=== PATIENT | male | born 1990 | race African-American/Black ===

== ENCOUNTER 2016-11-14 19:42 | Emergency (ER) | payer SELFPAY ==
--- NOTE | 2016-11-14 21:00 | ER Document Report ---
ED GI/ - General Chief Complaint: Pain With Urination Stated Complaint: ABDOMINAL PAIN Time Seen by Provider: 11/14/16 20:48 Notes: Patient is a 25-year-old male who comes emergency department for chief complaint of intermittent burning with urination, discharge from the penis, and intermittent lower abdominal cramps. He denies abdominal pain at this time. He denies testicular pain. He denies injury. He states she is sexually active with his girlfriend, states he does have unprotected intercourse. However he states he was recently tested and he thinks he is clean. Patient denies any daily medications or other medical history. TRAVEL OUTSIDE OF THE [place] IN LAST 30 DAYS: No - Related Data Allergies/Adverse Reactions: No Known Allergies Allergy (Verified 02/02/16 09:56) Past Medical History - General Information source: Patient - Social History Smoking Status: Never Smoker Drug Abuse: None Lives with: Spouse/Significant other Family History: CVA, Hypertension Patient has suicidal ideation: No Patient has homicidal ideation: No Pulmonary Medical History: Reports: Hx Asthma Renal/ Medical History: Denies: Hx Peritoneal Dialysis - Immunizations Immunizations up to date: Yes Hx Diphtheria, Pertussis, Tetanus Vaccination: Yes Review of Systems - Review of Systems Constitutional: No symptoms reported EENT: No symptoms reported Cardiovascular: No symptoms reported Respiratory: No symptoms reported Gastrointestinal: See HPI Genitourinary: See HPI Male Genitourinary: No symptoms reported Musculoskeletal: No symptoms reported Skin: No symptoms reported Hematologic/Lymphatic: No symptoms reported Neurological/Psychological: No symptoms reported Physical Exam - Vital signs Vitals: Temp Pulse Resp BP Pulse Ox 98.8 F 78 16 130/64 H 98 11/14/16 19:47 11/14/16 19:47 11/14/16 19:47 11/14/16 19:47 11/14/16 19:47 Interpretation: Normal - General General appearance: Appears well, Alert - HEENT Head: Normocephalic, Atraumatic Eyes: Normal Pupils: PERRL Pharynx: Normal - Respiratory Respiratory status: No respiratory distress Chest status: Nontender Breath sounds: Normal Chest palpation: Normal - Cardiovascular Rhythm: Regular Heart sounds: Normal auscultation Murmur: No - Abdominal Inspection: Normal Distension: No distension Bowel sounds: Normal Tenderness: Nontender. No: Tender Organomegaly: No organomegaly - Genitourinary Inspection: Normal. No: Blood at meatus, Penile discharge Tenderness: Nontender Cremasteric reflex: Normal Scrotum: Normal - Back Back: Normal, Nontender - Extremities General upper extremity: Normal inspection, Nontender, Normal color, Normal ROM , Normal temperature General lower extremity: Normal inspection, Nontender, Normal color, Normal ROM , Normal temperature, Normal weight bearing. No: Jeane's sign - Neurological Neuro grossly intact: Yes Cognition: Normal Orientation: AAOx4 Digna Coma Scale Eye Opening: Spontaneous [place] Coma Scale Verbal: Oriented Digna Coma Scale Motor: Obeys Commands Digna Coma Scale Total: 15 Speech: Normal Motor strength normal: LUE, RUE, LLE, RLE Sensory: Normal - Psychological Associated symptoms: Normal affect, Normal mood - Skin Skin Temperature: Warm Skin Moisture: Dry Skin Color: Normal Course - Re-evaluation Re-evalutation: Genital exam is unremarkable, abdominal exam is unremarkable, however based on patient's symptoms patient will be tested for gonorrhea and chlamydia. He states he wants to wait for the results. Gonorrhea and Chlamydia are both positive. Patient treated with Rocephin, azithromycin, he states his partner will be treated. Discussed follow-up, discussed return precautions, patient states understanding and agreement - Vital Signs Vital signs: Temp Pulse Resp BP Pulse Ox 98.4 F 79 18 144/79 H 99 11/14/16 23:58 11/14/16 23:58 11/14/16 23:58 11/14/16 23:58 11/14/16 23:58 - Laboratory Laboratory results interpreted by me: 11/14/16 20:44 Chlamydia DNA (PCR) DETECTED H N.gonorrhoeae DNA (PCR) DETECTED H Discharge - Discharge Clinical Impression: Dysuria, Penile discharge Condition: Stable Disposition: HOME, SELF-CARE Additional Instructions: Testing is positive for both gonorrhea and chlamydia. You have been treated for both. Your partner needs to also be treated. Avoid intercourse until 1 week after you both have been treated. Follow-up with primary care. Return to emergency department for any concerning symptoms.
[2016-11-14 22:41] LABS: CHLAM PCR DETECTED (NOT DETECT)
[2016-11-14] MEDS ORDERED: CEFTRIAXONE INJ 250 MG VIAL IM ONE (23:04)
[2016-11-14] MEDS ORDERED: LIDOCAINE 1% INJ-PF (10 MG/ML) 30 ML SDV INJ ONE (23:04)
[2016-11-14] MEDS ORDERED: AZITHROMYCIN 250 MG TABLET PO ONE (23:05)
[2016-11-14 23:59] VITALS: BP 144/79
== END 2016-11-14 23:55 | disposition home or self-care (01) ==
LOC: ER 19:42
DX: R36.9 Urethral discharge, unspecified (principal); R30.0 Dysuria; R10.9 Unspecified abdominal pain
CPT/HCPCS: 99283; 96372; 87491; 87591; J3490; J0696

== ENCOUNTER 2017-11-04 04:14 | Emergency (ER) | payer SELFPAY ==
[2017-11-04] MEDS ORDERED: ONDANSETRON HCL INJ/PF 4 MG/2 ML SDV IV ONE (05:32)
[2017-11-04] MEDS ORDERED: NORMAL SALINE 1000 ML 1,000 ML IV PRN (05:32)
[2017-11-04] MEDS ORDERED: MORPHINE SULFATE 10 MG/ML INJ IV ONE (05:32)
[2017-11-04] MEDS ORDERED: KETOROLAC TROMETHAMINE INJ/PF 30 MG/1 ML SDV IV ONE (05:32)
--- NOTE | 2017-11-04 05:35 | ER Document Report ---
ED General - General Chief Complaint: Abdominal Pain Stated Complaint: ABDOMINAL PAIN Time Seen by Provider: 11/04/17 05:28 TRAVEL OUTSIDE OF THE [place] IN LAST 30 DAYS: No - HPI Notes: Patient is a 26-year-old male with no significant past medical history who presents to the ED complaining of right flank pain that radiates around into his groin, hematuria, dysuria, and nausea without vomiting 2-1/2 hours. Patient states that his pain started pretty suddenly. Patient states that he has otherwise been feeling well prior and has been eating and drinking without difficulties. He is having normal bowel movements as well earlier. He denies any drug allergies. He has not had any kidney stones in the past. No other concerns or complaints at this time. Nothing improves or worsens his pain. Denies any headache, fever, neck pain, URI, sore throat, chest pain, palpitations, syncope, cough, shortness of breath, wheeze, dyspnea, vomiting/ diarrhea, loss of control of bowel or bladder, numbness/tingling, saddle anesthesia, muscle paralysis/weakness, or rash. - Related Data Allergies/Adverse Reactions: No Known Allergies Allergy (Verified 02/02/16 09:56) Past Medical History - Social History Smoking Status: Unknown if Ever Smoked Family History: CVA, Hypertension Pulmonary Medical History: Reports: Hx Asthma Renal/ Medical History: Denies: Hx Peritoneal Dialysis - Immunizations Immunizations up to date: Yes Hx Diphtheria, Pertussis, Tetanus Vaccination: Yes Review of Systems - Review of Systems -: Yes All other systems reviewed and negative Physical Exam - Vital signs Vitals: Temp Pulse Resp BP Pulse Ox 98.5 F 86 18 144/87 H 100 11/04/17 04:20 11/04/17 04:20 11/04/17 04:20 11/04/17 04:20 11/04/17 04:20 - Notes Notes: PHYSICAL EXAMINATION: GENERAL: Well-appearing, well-nourished and in no acute distress, but look uncomfortable EYES: Pupils equal round and reactive to light, extraocular movements intact, sclera anicteric, conjunctiva are normal. LUNGS: Breath sounds clear to auscultation bilaterally and equal. No wheezes rales or rhonchi. HEART: Regular rate and rhythm without murmurs, rubs, gallops. ABDOMEN: Soft, nondistended abdomen. No guarding, no rebound. No masses appreciated. Normal bowel sounds present. No CVA tenderness bilaterally. + mild tenderness to the suprapubic area. No tenderness at McBurney. Pablo neg. Musculoskeletal: FROM to passive/active. Strength 5+/5. Extremities: No cyanosis, clubbing, or edema b/l. Peripheral pulses 2+. Capillary refill less than 3 seconds. NEUROLOGICAL: Normal speech, normal gait. PSYCH: Normal mood, normal affect. SKIN: Warm, Dry, normal turgor, no rashes or lesions noted. Course - Re-evaluation Re-evalutation: 11/04/17 06:46 Patient is an afebrile, well-hydrated, 26-year-old male who presents to the ED with hematuria and right flank pain, suspect recently passed stone. Vitals are acceptable. PE is otherwise unremarkable. Patient states that he did not have any hematuria until his initial urine that he provided to us. The pain has not worsened. CBC, CMP were unremarkable for any acute pathology. See urinalysis. CT scan was unremarkable for any acute pathology otherwise. Patient is tolerating p.o. without difficulties. He has no significant tachycardia, tachypnea, or hypoxia. His abdomen is otherwise soft and nontender at this time. Low suspicion/risk for acute appendicitis, bowel obstruction, acute cholecystitis, perforated diverticulitis, incarcerated hernia, pancreatitis, perforated ulcer, peritonitis, sepsis, or other systemic emergent condition at this time. Patient is aware that his condition can change from initial presentation and he needs to monitor symptoms closely and seek medical attention if any acute changes. Conservative measures otherwise for symptoms. Recheck with PCM in 2-3 days. Consider consult with a neurologist this week. Reviewed with patient that he will need his urine rechecked in a couple days due to the hematuria as worst case scenario could be cancer. return to the ED with any worsening/concerning symptoms otherwise as reviewed in discharge. Patient is in agreement. Reviewed with Dr. Mendez who is in agreement with dispo/plan. - Vital Signs Vital signs: Temp Pulse Resp BP Pulse Ox 98.5 F 86 18 144/87 H 100 11/04/17 04:20 11/04/17 04:20 11/04/17 04:20 11/04/17 04:20 11/04/17 04:20 - Laboratory Result Diagrams: 11/04/17 06:08 11/04/17 06:08 Laboratory results interpreted by me: 11/04/17 11/04/17 04:22 06:08 WBC 10.7 H Urine Protein >=500 H Urine Blood SMALL H Urine Urobilinogen 2.0 H Discharge - Discharge Clinical Impression: Dysuria, Right flank pain Hematuria Qualifiers: Hematuria type: unspecified type Qualified Code(s): R31.9 - Hematuria, unspecified Condition: Stable Disposition: HOME, SELF-CARE Instructions: Abdominal Pain ([facility]), Antinausea Medication ([facility]) Additional Instructions: He did have blood in the urine and he will need this rechecked and 2-3 days to further evaluate as in rare instances hematuria/blood in the urine can be a secondary result from cancer. Push fluids (i.e. water, cranberry juice) Proper hygenic technique Keep the skin clean Tylenol/ibuprofen as needed May use over the counter AZO for burning with urination x2-3 days Take medications as directed F/u with your PCM in 2-3 days for a recheck Schedule a consult with a Urologist this week. Return to the ED with any worsening symptoms and/or development of fever, headache, chest pain, palpitations, syncope, shortness of breath, trouble breathing, abdominal pain, n/v/d, blood in stool/urine, loss of control of bowel /bladder, urinary retention, or other worsening symptoms that are concerning to you. Prescriptions: Hydrocodone/Acetaminophen [[place] 5-325 mg Tablet] 1 tab PO BID PRN #6 tablet PRN Reason: Ondansetron [Zofran Odt 4 mg Tablet] 1 - 2 tab PO Q4H PRN #15 tab.rapdis PRN Reason: For Nausea/Vomiting Tamsulosin HCl [Flomax] 0.4 mg PO DAILY #10 cap.er.24h Forms: Elevated Blood Pressure Referrals: KEEGAN SOLO II, MD [COMIC ARTIST] - 11/06/17
[2017-11-04 06:08] LABS: BILIRUBIN,URINE NEGATIVE (NEGATIVE); GLUCOSE, URINE NEGATIVE (NEGATIVE); KETONES,URINE NEGATIVE (NEGATIVE); LEUKOCYTE ESTERASE,URINE NEGATIVE (NEGATIVE); NITRITE,URINE NEGATIVE (NEGATIVE); PROTEIN,URINE >=500 mg/dL (NEGATIVE); URINE SPECIFIC GRAVITY 1.023
[2017-11-04 06:09] LABS: COLOR,URINE RED
[2017-11-04 06:10] LABS: APPEARANCE,URINE TURBID
[2017-11-04 06:21] LABS: ABSOLUTE BASOPHILS # (AUTO) 0.1 10^3/uL (0.0-0.2); ABSOLUTE EOSINOPHILS # (AUTO) 0.5 10^3/uL (0.0-0.6); ABSOLUTE LYMPHOCYTES (AUTO) 2.5 10^3/uL (0.5-4.7); ABSOLUTE MONOCYTES (AUTO) 0.7 10^3/uL (0.1-1.4); ABSOLUTE NEUT (AUTO) 6.9 10^3/uL (1.7-8.2); BASOPHILS % (AUTO) 0.5 % (0-2); EOSINOPHILS % (AUTO) 4.3 % (0-6); HEMOGLOBIN 14.7 g/dL (13.5-17.0); LYMPHOCYTES % (AUTO) 23.3 % (13-45); MEAN CORPUSCULAR HEMOGLOBIN 30.6 pg (27.0-33.4); MEAN CORPUSCULAR HGB CONC 34.1 g/dL (32.0-36.0); MEAN CORPUSCULAR VOLUME 90 fl (80-97); MONOCYTES % (AUTO) 6.9 % (3-13); PLATELET COUNT 204 10^3/uL (150-450); RED BLOOD COUNT 4.78 10^6/uL (4.35-5.55); RED CELL DISTRIBUTION WIDTH 13.6 % (11.5-14.0); TOTAL CELLS COUNTED % (AUTO) 100 %; WHITE BLOOD COUNT 10.7 10^3/uL (4.0-10.5)
--- NOTE | 2017-11-04 06:36 | RADIOLOGY REPORT (SQ) ---
EXAM DESCRIPTION: CT ABDOMEN AND PELVIS WITHOUT CONTRAST CLINICAL HISTORY: Rt flank pain, hematuria COMPARISON: 02/01/2026 TECHNIQUE: CT of the abdomen and pelvis without IV contrast. Evaluation of the solid organs and vasculature is suboptimal due to lack of IV contrast. DLP: 150.50 mGy-cm FINDINGS: Lung Bases: The visualized lung bases are clear. Bones: No destructive bone lesions identified. Abdomen: Liver: The liver has normal size and density. Gallbladder: No calcified gallstones. Spleen, Pancreas, and Adrenal Glands: The spleen, pancreas, and adrenal glands are unremarkable. Kidneys: The kidneys have normal size and contour without evidence of hydronephrosis. No obstructing ureteral calculi. Vasculature: The aorta and IVC have normal caliber and position. Stomach: The stomach and duodenum have normal course. Other: No free intraperitoneal air. No free fluid or lymphadenopathy. Pelvis: Bladder: Urinary bladder is unremarkable. Bowel: No dilated loops of large or small bowel. Appendix: Normal appendix. Pelvis: Prostate is not enlarged. IMPRESSION: 1. No acute inflammatory or obstructive process identified. This exam was performed according to our departmental dose-optimization program, which includes automated exposure control, adjustment of the mA and/or kV according to patient size and/or use of iterative reconstruction technique.
[2017-11-04 06:37] LABS: ALANINE AMINOTRANSFERASE 24 U/L (21-72); ALBUMIN 4.1 g/dL (3.5-5.0); ALKALINE PHOSPHATASE 76 U/L (38-126); ANION GAP 8 (5-19); ASPARTATE AMINO TRANSFERASE 25 U/L (17-59); BILIRUBIN,DIRECT 0.3 mg/dL (0.0-0.4); BILIRUBIN,TOTAL 0.3 mg/dL (0.2-1.3); BLOOD UREA NITROGEN 11 mg/dL (7-20); CALCIUM 9.6 mg/dL (8.4-10.2); CARBON DIOXIDE 27 mmol/L (22-30); CHLORIDE 107 mmol/L (98-107); GLUCOSE 98 mg/dL (75-110); POTASSIUM 3.7 mmol/L (3.6-5.0); SODIUM 142.1 mmol/L (137-145)
[2017-11-04 07:49] VITALS: BP 130/70
== END 2017-11-04 07:49 | disposition home or self-care (01) ==
LOC: ER 04:14
DX: R31.9 Hematuria, unspecified (principal); R10.9 Unspecified abdominal pain; R10.30 Lower abdominal pain, unspecified; R30.0 Dysuria; R11.0 Nausea; J45.909 Unspecified asthma, uncomplicated
CPT/HCPCS: 99284; 96361; 96374; 96375; 36415; 87086; 85025; 87088; 80053; 81001; 87186; 76380; J1885; J2270; J2405; J7030

== ENCOUNTER 2017-11-07 07:07 | Emergency (ER) | payer SELFPAY ==
[2017-11-07 07:14] VITALS: BP 123/70
[2017-11-07] MEDS ORDERED: CIPROFLOXACIN HCL 500 MG TABLET PO ONE (07:45)
[2017-11-07] MEDS ORDERED: CEFTRIAXONE INJ 1000 MG VIAL IM ONE (07:45)
--- NOTE | 2017-11-07 07:46 | ER Document Report ---
ED GI/ - General Chief Complaint: Flank Pain Stated Complaint: SIDE PAIN/BLOOD IN URINE Time Seen by Provider: 11/07/17 07:41 Notes: Urine culture from November 04 shows greater than 100,000 colonies of E. coli so I will treat with an injection of ceftriaxone which is sensitive and a prescription for ciprofloxacin 500 mg twice daily. TRAVEL OUTSIDE OF THE [place] IN LAST 30 DAYS: No - Related Data Allergies/Adverse Reactions: No Known Allergies Allergy (Verified 11/07/17 07:11) Past Medical History - Social History Family History: CVA, Hypertension Pulmonary Medical History: Reports: Hx Asthma Renal/ Medical History: Denies: Hx Peritoneal Dialysis - Immunizations Immunizations up to date: Yes Hx Diphtheria, Pertussis, Tetanus Vaccination: Yes Physical Exam - Vital signs Vitals: Temp Pulse Resp BP Pulse Ox 98.6 F 74 12 123/70 99 11/07/17 07:12 11/07/17 07:12 11/07/17 07:12 11/07/17 07:12 11/07/17 07:12 Course - Vital Signs Vital signs: Temp Pulse Resp BP Pulse Ox 98.6 F 74 12 123/70 99 11/07/17 07:12 11/07/17 07:12 11/07/17 07:12 11/07/17 07:12 11/07/17 07:12
--- NOTE | 2017-11-07 08:04 | ER Document Report ---
HPI - HPI Pain Level: 2 Context: 26-year-old male continues with right flank pain and a little bit hematuria. Has been taking hydrocodone and Flomax suspecting that it was a kidney stone when he was seen on November 04. The urine culture grew greater than 100,000 colonies E. coli. It is sensitive to ceftriaxone and Cipro. He has a male sexual partner and his E that the receptive or the rectal rn discharge without condom use. I discussed with him when he inserts into the rectum even though they use a enema the rectal bacteria can get into his urethra and cause a urinary tract infection. He had a mild fever last night but no vomiting. No testicular pain or swelling. He was not screened for gonorrhea or chlamydia on the fourth and he was positive for both in 2017 so I have asked him to please submit a sample for that today and he agrees with that. Associated Symptoms: None Exacerbated by: Other - urination Relieved by: Denies Similar symptoms previously: No Recently seen / treated by doctor: Yes - ROS ROS below otherwise negative: Yes Systems Reviewed and Negative: Yes All other systems reviewed and negative - REPRODUCTIVE Reproductive: DENIES: : Past Medical History - General Information source: Patient - Social History Smoking Status: Unknown if Ever Smoked Frequency of alcohol use: None Drug Abuse: None Lives with: Spouse/Significant other Family History: CVA, Hypertension Pulmonary Medical History: Reports: Hx Asthma Renal/ Medical History: Reports: Other - hx gonorrhea 2017. Denies: Hx Peritoneal Dialysis Surgical Hx: Negative - Immunizations Immunizations up to date: Yes Hx Diphtheria, Pertussis, Tetanus Vaccination: Yes Vertical Provider Document - INFECTION CONTROL TRAVEL OUTSIDE OF THE [place] IN LAST 30 DAYS: No Course - Re-evaluation Re-evalutation: 11/07/17 14:13 Patient call back as gonorrhea and Chlamydia were negative. - Vital Signs Vital signs: Temp Pulse Resp BP Pulse Ox 98.6 F 74 12 123/70 99 11/07/17 07:12 11/07/17 07:12 11/07/17 07:12 11/07/17 07:12 11/07/17 07:12 Discharge - Discharge Clinical Impression: E. coli urinary tract infection Condition: Good Disposition: HOME, SELF-CARE Instructions: Ciprofloxacin ([facility]), Rocephin ([facility]), Urinary Tract Infection ([facility] ) Additional Instructions: Call me in 3 hours for the STD culture results at [phone] Did not have intercourse until you find out about the STD culture results. If they are positive your partner will need to be treated Return to the emergency room for any vomiting fever increased pain or genitalia swelling. Use condoms to protect her urinary tract when you do have intercourse. Prescriptions: Ciprofloxacin HCl [Cipro 500 mg Tablet] 500 mg PO BID #14 tablet Forms: Return to Work
[2017-11-07] MEDS ORDERED: LIDOCAINE 1% INJ-PF (10 MG/ML) 30 ML SDV INJ ONE (08:09)
[2017-11-07 10:10] LABS: CHLAM PCR NOT DETECTED (NOT DETECT); GON PCR NOT DETECTED (NOT DETECT)
== END 2017-11-07 08:28 | disposition home or self-care (01) ==
LOC: ER 07:07
DX: N39.0 Urinary tract infection, site not specified (principal); B96.20 Unspecified Escherichia coli [E. coli] as the cause of diseases classified elsewhere; R31.9 Hematuria, unspecified; R10.9 Unspecified abdominal pain; R50.9 Fever, unspecified; Z79.899 Other long term (current) drug therapy; J45.909 Unspecified asthma, uncomplicated
CPT/HCPCS: 99284; 96372; 87491; 87591; J3490; J0696

== ENCOUNTER 2017-11-26 14:54 | Emergency (ER) | payer SELFPAY ==
[2017-11-26] MEDS ORDERED: ACETAMINOPHEN 325 MG TABLET PO ONE (16:07)
[2017-11-26] MEDS ORDERED: ONDANSETRON 4 MG TAB.RAPDIS PO ONE (16:07)
--- NOTE | 2017-11-26 16:09 | ER Document Report ---
ED Medical Screen (RME) - General Chief Complaint: Abdominal Pain Stated Complaint: STOMACH PAIN Time Seen by Provider: 11/26/17 15:59 Notes: RAPID MEDICAL EVALUATION DISCLOSURE I have seen this patient as part of a Rapid Medical Evaluation and, if applicable, placed any initially appropriate orders. The patient will be seen and fully evaluated, including a full history and physical exam, by a provider ( in Main ED or Fast Track) when a room becomes available. 26-year-old male here with complaints of lower abdominal pain nausea vomiting and dysuria that started 2 days ago. The pain is not worse with movement or walking. He has had fevers up to 102 as well. He reports this feels like the previous episode he had during his recent ED visits and reports that it turned out to be a UTI. EXAM Minimal right lower quadrant TTP Mild to moderate suprapubic TTP TRAVEL OUTSIDE OF THE [place] IN LAST 30 DAYS: No - Related Data Allergies/Adverse Reactions: No Known Allergies Allergy (Verified 11/26/17 14:55) Past Medical History - Social History Chew tobacco use (# tins/day): No Frequency of alcohol use: None Drug Abuse: None Pulmonary Medical History: Reports: Hx Asthma Renal/ Medical History: Denies: Hx Peritoneal Dialysis - Immunizations Immunizations up to date: Yes Hx Diphtheria, Pertussis, Tetanus Vaccination: Yes Physical Exam - Vital signs Vitals: Temp Pulse Resp BP Pulse Ox 98.4 F 87 14 124/64 98 11/26/17 14:59 11/26/17 14:59 11/26/17 14:59 11/26/17 14:59 11/26/17 14:59 Course - Vital Signs Vital signs: Temp Pulse Resp BP Pulse Ox 98.4 F 87 14 124/64 98 11/26/17 14:59 11/26/17 14:59 11/26/17 14:59 11/26/17 14:59 11/26/17 14:59
[2017-11-26 16:49] LABS: HEMOGLOBIN 15.5 g/dL (13.5-17.0); MEAN CORPUSCULAR HEMOGLOBIN 30.1 pg (27.0-33.4); MEAN CORPUSCULAR HGB CONC 33.8 g/dL (32.0-36.0); MEAN CORPUSCULAR VOLUME 89 fl (80-97); PLATELET COUNT 208 10^3/uL (150-450); RED BLOOD COUNT 5.16 10^6/uL (4.35-5.55); RED CELL DISTRIBUTION WIDTH 13.2 % (11.5-14.0)
[2017-11-26 16:59] LABS: ALANINE AMINOTRANSFERASE 28 U/L (21-72); ALBUMIN 4.1 g/dL (3.5-5.0); ALKALINE PHOSPHATASE 66 U/L (38-126); ANION GAP 10 (5-19); ASPARTATE AMINO TRANSFERASE 21 U/L (17-59); BILIRUBIN,DIRECT 0.4 mg/dL (0.0-0.4); BILIRUBIN,TOTAL 0.7 mg/dL (0.2-1.3); BLOOD UREA NITROGEN 9 mg/dL (7-20); CALCIUM 9.4 mg/dL (8.4-10.2); CARBON DIOXIDE 25 mmol/L (22-30); CHLORIDE 108 mmol/L (98-107); GLUCOSE 92 mg/dL (75-110); SODIUM 142.9 mmol/L (137-145); TOTAL PROTEIN 7.3 g/dL (6.3-8.2)
[2017-11-26 17:10] LABS: ABSOLUTE LYMPHOCYTES# (MANUAL) 2.3 10^3/uL (0.5-4.7); ABSOLUTE MONOCYTES # (MANUAL) 0.9 10^3/uL (0.1-1.4); ABSOLUTE NEUTROPHILS# (MANUAL) 5.5 10^3/uL (1.7-8.2); BASOPHILS % (MANUAL) 0 % (0-2); EOSINOPHILS % (MANUAL) 3 % (0-6); LYMPHOCYTES % (MANUAL) 26 % (13-45); MONOCYTES % (MANUAL) 10 % (3-13); SEGMENTED NEUTROPHILS % (MAN) 61 % (42-78); TOTAL CELLS COUNTED 100
[2017-11-26 17:11] LABS: PLATELET COMMENT ADEQUATE; TOXIC GRANULATION SLIGHT
[2017-11-26 18:16] LABS: AMORPHOUS SEDIMENT,URINE TRACE /HPF; APPEARANCE,URINE CLOUDY; BILIRUBIN,URINE NEGATIVE (NEGATIVE); COLOR,URINE YELLOW; GLUCOSE, URINE NEGATIVE (NEGATIVE); KETONES,URINE NEGATIVE (NEGATIVE); LEUKOCYTE ESTERASE,URINE LARGE (NEGATIVE); NITRITE,URINE NEGATIVE (NEGATIVE); PROTEIN,URINE NEGATIVE (NEGATIVE); URINE SPECIFIC GRAVITY 1.006; UROBILINOGEN,URINE NEGATIVE mg/dL (<2.0)
[2017-11-26] MEDS ORDERED: SULFAMETHOXAZOLE/TRIMETHOPRIM 800-160 MG TABLET PO ONE (19:22)
[2017-11-26] MEDS ORDERED: CEFTRIAXONE INJ 1000 MG VIAL IM ONE (19:22)
[2017-11-26] MEDS ORDERED: LIDOCAINE 1% INJ-PF (10 MG/ML) 30 ML SDV INJ ONE (19:22)
--- NOTE | 2017-11-26 19:26 | ER Document Report ---
HPI - HPI Patient complains to provider of: Dysuria Onset: Other - 2 days Onset/Duration: Persistent Quality of pain: Burning Pain Level: 4 Context: Patient presents with a 2 day history of dysuria and nausea and vomiting. Patient states he is vomited once today. Patient states he had a fever yesterday but none today. Patient does report that he was here about 3 weeks ago and treated for a urinary tract infection. Patient states that he did take the antibiotic and his symptoms resolved. Patient states symptoms started to return 2 days ago. Patient does have intercourse with men. Associated Symptoms: Vomiting, Other - Dysuria. denies: Fever Exacerbated by: Denies Relieved by: Denies Similar symptoms previously: Yes Recently seen / treated by doctor: Yes - ROS ROS below otherwise negative: Yes Systems Reviewed and Negative: Yes All other systems reviewed and negative - CONSTITUTIONAL Constitutional: REPORTS: Fever - Yesterday, none today - GASTROINTESTINAL Gastrointestinal: REPORTS: Abdominal Pain, Nausea, Patient vomiting. DENIES: Diarrhea - URINARY Urinary: REPORTS: Dysuria - REPRODUCTIVE Reproductive: DENIES: : - MUSCULOSKELETAL Musculoskeletal: REPORTS: Back Pain. DENIES: Extremity pain - DERM Skin Color: Normal Skin Problems: None Past Medical History - General Information source: Patient - Social History Smoking Status: Current Every Day Smoker Chew tobacco use (# tins/day): No Smoking Education Provided: Yes Frequency of alcohol use: None Drug Abuse: None Occupation: None Family History: CVA, Hypertension Patient has suicidal ideation: No Patient has homicidal ideation: No - Medical History Medical History: Negative Pulmonary Medical History: Reports: Hx Asthma Renal/ Medical History: Denies: Hx Peritoneal Dialysis Surgical Hx: Negative - Immunizations Immunizations up to date: Yes Hx Diphtheria, Pertussis, Tetanus Vaccination: Yes Vertical Provider Document - CONSTITUTIONAL Agree With Documented VS: Yes Exam Limitations: No Limitations General Appearance: WD/WN, No Apparent Distress - INFECTION CONTROL TRAVEL OUTSIDE OF THE [place] IN LAST 30 DAYS: No - HEENT HEENT: Atraumatic, Normocephalic - NECK Neck: Normal Inspection - RESPIRATORY Respiratory: Breath Sounds Normal, No Respiratory Distress - CARDIOVASCULAR Cardiovascular: Regular Rate, Regular Rhythm - GI/ABDOMEN Gastrointestinal: Abdomen Non-Tender, Abdomen Tender - Suprapubic, No Organomegaly, Normal Bowel Sounds - BACK Back: CVA Tenderness-Right - MUSCULOSKELETAL/EXTREMETIES Musculoskeletal/Extremeties: DONAVAN [place]OD - NEURO Level of Consciousness: Awake, Alert, Appropriate Motor/Sensory: No Motor Deficit - DERM Integumentary: Warm, Dry, No Rash Course - Re-evaluation Re-evalutation: 11/26/17 19:[address] scan report from earlier this month. No concern for obstructive uropathy. Patient with hematuria on that visit. Patient with obvious urinary tract infection given urinalysis results today. Repeat culture will be performed. Patient's previous culture grew out E. coli that was sensitive to Bactrim as well as Rocephin. Patient nontoxic in appearance. No leukocytosis or fever at this time. No concern for sepsis. - Vital Signs Vital signs: Temp Pulse Resp BP Pulse Ox 98.4 F 87 14 124/64 98 11/26/17 14:59 11/26/17 14:59 11/26/17 14:59 11/26/17 14:59 11/26/17 14:59 - Laboratory Result Diagrams: 11/26/17 16:30 11/26/17 16:30 Laboratory results interpreted by me: 11/26/17 11/26/17 16:30 16:30 Chloride 108 H Urine Blood MODERATE H Ur Leukocyte Esterase LARGE H 11/26/17 19:23 Reviewed labs as well as culture from earlier this month. - Diagnostic Test Radiology reviewed: Reports reviewed - Reviewed CT report from earlier this month Discharge - Discharge Clinical Impression: UTI (urinary tract infection) Qualifiers: Urinary tract infection type: site unspecified Hematuria presence: with hematuria Qualified Code(s): N39.0 - Urinary tract infection, site not specified Condition: Stable Disposition: HOME, SELF-CARE Instructions: Flank Pain ([facility]), Urinary Anesthetic Agent ([facility]), Urinary Tract Infection ([facility]) Additional Instructions: Return immediately for any new or worsening symptoms Followup with your primary care provider, call tomorrow to make a followup appointment Do not have any unprotected intercourse. No intercourse for at least one week while we wait for cultures to return. We will call you if you need any different treatment. Prescriptions: Phenazopyridine HCl [Pyridium 200 mg Tablet] 200 mg PO TID #15 tablet Sulfamethoxazole/Trimethoprim [Bactrim Ds Tablet] 1 each PO BID #20 tablet Forms: Smoking Cessation Education Referrals: [facility] [Provider Group] - Follow up as needed [facility] [Provider Group] - Follow up as needed
[2017-11-26 19:43] VITALS: BP 115/64
== END 2017-11-26 20:14 | disposition home or self-care (01) ==
LOC: ER 14:54
DX: R30.0 Dysuria (principal); R11.2 Nausea with vomiting, unspecified; R50.9 Fever, unspecified; F17.200 Nicotine dependence, unspecified, uncomplicated
CPT/HCPCS: 99285; 96372; 36415; 87086; 85025; 87088; 80053; 81001; 87186; S0119; J3490; J0696

== ENCOUNTER 2017-12-15 21:52 | Emergency (ER) | payer SELFPAY ==
[2017-12-15 23:31] LABS: APPEARANCE,URINE SLIGHTLY-CLOUDY; BILIRUBIN,URINE NEGATIVE (NEGATIVE); COLOR,URINE YELLOW; GLUCOSE, URINE NEGATIVE (NEGATIVE); KETONES,URINE NEGATIVE (NEGATIVE); LEUKOCYTE ESTERASE,URINE MODERATE (NEGATIVE); NITRITE,URINE POSITIVE (NEGATIVE); PROTEIN,URINE NEGATIVE (NEGATIVE); URINE SPECIFIC GRAVITY 1.012; UROBILINOGEN,URINE NEGATIVE mg/dL (<2.0)
[2017-12-15] MEDS ORDERED: AZITHROMYCIN 250 MG TABLET PO ONE (23:42)
[2017-12-15] MEDS ORDERED: CEFTRIAXONE INJ 250 MG VIAL IM ONE (23:42)
[2017-12-15] MEDS ORDERED: LIDOCAINE 1% INJ-PF (10 MG/ML) 30 ML SDV INJ ONE (23:42)
--- NOTE | 2017-12-15 23:44 | ER Document Report ---
ED GI/ - General Chief Complaint: Urinary Problem Stated Complaint: URINARY ISSUES Time Seen by Provider: 12/15/17 22:49 Mode of Arrival: Ambulatory Information source: Patient Notes: Patient is a 27-year-old male who presents to the ER today for burning with urination 2 days. Patient states he also has some white and clear discharge from the penis and a little redness around his penis at the head. Patient denies any lower abdominal pain or back pain, fevers or chills. He does have a history of recurrent kidney infections and bladder infections, patient has never seen a urologist about this. Patient states he has been sexually active recently and is concerned about STDs today. TRAVEL OUTSIDE OF THE [place] IN LAST 30 DAYS: No - Related Data Allergies/Adverse Reactions: No Known Allergies Allergy (Verified 11/26/17 14:55) Past Medical History - General Information source: Patient - Social History Smoking Status: Unknown if Ever Smoked Family History: CVA, Hypertension Patient has suicidal ideation: No Patient has homicidal ideation: No Pulmonary Medical History: Reports: Hx Asthma Renal/ Medical History: Denies: Hx Peritoneal Dialysis - Immunizations Immunizations up to date: Yes Hx Diphtheria, Pertussis, Tetanus Vaccination: Yes Review of Systems - Review of Systems Constitutional: No symptoms reported EENT: No symptoms reported Cardiovascular: No symptoms reported Respiratory: No symptoms reported Gastrointestinal: No symptoms reported Genitourinary: See HPI Male Genitourinary: No symptoms reported Musculoskeletal: No symptoms reported Skin: No symptoms reported Hematologic/Lymphatic: No symptoms reported Neurological/Psychological: No symptoms reported Physical Exam - Vital signs Vitals: Temp Pulse Resp BP Pulse Ox 98.6 F 80 17 123/70 98 12/15/17 22:04 12/15/17 22:04 12/15/17 22:04 12/15/17 22:04 12/15/17 22:04 - Notes Notes: PHYSICAL EXAMINATION: GENERAL: Well-appearing and in no acute distress. HEAD: Atraumatic, normocephalic. EYES: Pupils equal round and reactive to light, extraocular movements intact, sclera anicteric, conjunctiva are normal. NECK: Normal range of motion, supple without lymphadenopathy LUNGS: CTAB and equal. No wheezes rales or rhonchi. HEART: Regular rate and rhythm without murmurs ABDOMEN: Soft, no tenderness. No guarding, no rebound BACK: no vertebral tenderness, normal ROM genital: pt declined GI/: no CVA tenderness EXTREMITIES: Normal range of motion, no pitting edema. No cyanosis. NEUROLOGICAL: Cranial nerves grossly intact. Normal sensory/motor exams. PSYCH: Normal mood, normal affect. SKIN: Warm, Dry, normal turgor, no rashes or lesions noted Course - Re-evaluation Re-evalutation: 12/16/17 01:18 Urinalysis positive for nitrites and leukocytes with 80 white blood cells. Gonorrhea and Chlamydia is pending, patient does not want to wait on that. I did treat him today with azithromycin and Rocephin, and we will send him home with Macrobid which has been shown to be susceptible to his previous urinary cultures. - Vital Signs Vital signs: Temp Pulse Resp BP Pulse Ox 98.5 F 68 16 124/67 98 12/16/17 00:22 12/16/17 00:22 12/16/17 00:22 12/16/17 00:22 12/16/17 00:22 - Laboratory Laboratory results interpreted by me: 12/15/17 23:12 Urine Blood SMALL H Urine Nitrite POSITIVE H Ur Leukocyte Esterase MODERATE H Discharge - Discharge Clinical Impression: UTI (urinary tract infection) Qualifiers: Urinary tract infection type: site unspecified Hematuria presence: with hematuria Qualified Code(s): N39.0 - Urinary tract infection, site not specified Condition: Stable Disposition: HOME, SELF-CARE Instructions: Nitrofurantoin ([facility]), Urinary Tract Infection ([facility]) Additional Instructions: Return immediately for any new or worsening symptoms. Follow up with primary care provider, call tomorrow to make followup appointment. Drink plenty of water. Please refrain from any sexual activity until all of your symptoms resolved. Prescriptions: Nitrofurantoin/Nitrofuran Mac [Macrobid 100 mg Capsule] 1 tab PO BID #20 capsule Referrals: ROSALIE SAMSON DO [[facility]] - Follow up as needed
[2017-12-16 00:23] VITALS: BP 124/67
[2017-12-16 02:52] LABS: CHLAM PCR NOT DETECTED (NOT DETECT); GON PCR NOT DETECTED (NOT DETECT)
== END 2017-12-16 00:22 | disposition home or self-care (01) ==
LOC: ER 21:52
DX: N39.0 Urinary tract infection, site not specified (principal); R30.9 Painful micturition, unspecified; R36.9 Urethral discharge, unspecified; J45.909 Unspecified asthma, uncomplicated
CPT/HCPCS: 99283; 96372; 81001; 87491; 87591; J3490; J0696

== ENCOUNTER 2019-12-07 03:18 | Emergency (ER) | payer SELFPAY ==
[2019-12-07] MEDS ORDERED: CEPHALEXIN 500 MG CAPSULE PO ONE (05:53)
[2019-12-07] MEDS ORDERED: SULFAMETHOXAZOLE/TRIMETHOPRIM 800-160 MG TABLET PO ONE (05:53)
[2019-12-07] MEDS ORDERED: PROMETHAZINE HCL 25 MG TABLET PO ONE (05:53)
[2019-12-07] MEDS ORDERED: HYDROCODONE/ACETAMINOPHEN 5-325 MG (6 TAB/ER DISP) PO PRN (05:53)
[2019-12-07] MEDS ORDERED: OXYCODONE HCL IR 5 MG TABLET PO ONE (05:53)
--- NOTE | 2019-12-07 05:56 | ER Document Report ---
HPI - HPI Time Seen by Provider: 12/07/19 05:25 Pain Level: 4 Context: Patient is a 28-year-old male that comes to the emergency department for chief complaint of a painful, swollen, red area just above his left eyelid and slightly including the left eyelid with progressive worsening redness and swelling. Swelling is worsened over the past several days. Patient states he squeezed it and poked it and only was able to get a small amount of clear fluid out of it. Patient states that he had something similar on the right side of his face previously which was drained with a needle and resolved with antibiotics. He denies IV drug abuse, fever, or any daily medications. Tetanus is up-to-date. He denies any other complaints. - CONSTITUTIONAL Constitutional: DENIES: Fever, Chills - REPRODUCTIVE Reproductive: DENIES: : Past Medical History - General Information source: Patient - Social History Smoking Status: Current Every Day Smoker Frequency of alcohol use: None Drug Abuse: None Lives with: Family Family History: CVA, Hypertension Patient has homicidal ideation: No Pulmonary Medical History: Reports: Hx Asthma Renal/ Medical History: Denies: Hx Peritoneal Dialysis - Immunizations Immunizations up to date: Yes Hx Diphtheria, Pertussis, Tetanus Vaccination: Yes Vertical Provider Document - CONSTITUTIONAL General Appearance: WD/WN, No Apparent Distress - INFECTION CONTROL TRAVEL OUTSIDE OF THE [place] IN LAST 30 DAYS: No - HEENT HEENT: Atraumatic, Normocephalic, PERRLA - normal EOMs. negative: Normal ENT Exam - There is an indurated, fluctuant, erythematous, tender area just below the left eyebrow and just above the left eyelid with swelling that slightly includes the top of the left eyelid. Conjunctive are normal, pupils normal, skin, face, ENT exam otherwise normal. - NECK Neck: Normal Inspection - RESPIRATORY Respiratory: Breath Sounds Normal, No Respiratory Distress - CARDIOVASCULAR Cardiovascular: Regular Rate, Regular Rhythm - GI/ABDOMEN Gastrointestinal: Abdomen Soft, Abdomen Non-Tender - BACK Back: Normal Inspection - MUSCULOSKELETAL/EXTREMETIES Musculoskeletal/Extremeties: MAEW, FROM, Non-Tender - NEURO Level of Consciousness: Awake, Alert, Appropriate Motor/Sensory: No Motor Deficit, No Sensory Deficit - DERM Integumentary: Warm, Dry, No Rash Course - Re-evaluation Re-evalutation: Patient with an isolated abscess with surrounding cellulitis on the left forehead just below the left eyebrow. No concerning deficits or findings in regards to the eye, normal vision, normal EOMs, normal conjunctiva. Unremarkable exam otherwise. Area was cleaned, opened with a needle, dressed, patient placed on antibiotics, discussed expectations, follow-up, return precautions. Patient states understanding and agreement. - Vital Signs Vital signs: Temp Pulse Resp BP Pulse Ox 99.1 F 77 16 146/74 H 100 12/07/19 05:08 12/07/19 03:26 12/07/19 03:26 12/07/19 03:26 12/07/19 03:26 Procedures - Incision and Drainage Left face/eyebrow/eyelid Type: Single Blade size: Other - 18-gauge needle I&D procedure: Shurclens applied, Sterile dressing applied Incision Method: Incision made with needle Amount/type of drainage: About 0.5 cc of purulent drainage, small amount of bloody drainage Discharge - Discharge Clinical Impression: Abscess Cellulitis Qualifiers: Site of cellulitis: face Qualified Code(s): L03.211 - Cellulitis of face Condition: Stable Disposition: HOME, SELF-CARE Instructions: Oral Narcotic Medication ([facility]) Additional Instructions: Your evaluation shows an abscess and surrounding cellulitis (skin infection). The abscess has been drained, keep area clean, clean with soap and water, keep absorbent dressing over the area. Take antibiotics as prescribed to completion. Follow-up with primary care. Return if you worsen in any way including spreading swelling of the face, severe worsening pain, fever/chills, or any other concerning or worsening symptoms. Prescriptions: Sulfamethoxazole/Trimethoprim [Bactrim Ds Tablet] 1 each PO BID #14 tablet Cephalexin Monohydrate [Keflex 500 mg Capsule] 500 mg PO QID #28 capsule Forms: Return to Work
[2019-12-07 06:33] VITALS: BP 132/82
== END 2019-12-07 06:34 | disposition home or self-care (01) ==
LOC: ER 03:18
DX: H00.034 Abscess of left upper eyelid (principal); L03.211 Cellulitis of face; F17.200 Nicotine dependence, unspecified, uncomplicated
CPT/HCPCS: 99283